=== PATIENT | female | born 1965 | race Hispanic/Latino ===

== ENCOUNTER 2021-12-23 11:06 | Inpatient (IN) | payer SELFPAY ==
[2021-12-23] MEDS ORDERED: Ketorolac Tromethamine 30 MG/ML VIAL ONE (12:08)
[2021-12-23 12:15] LABS: #Eosinphils 0.1 10x3/uL (0.0-0.5); #Monocytes 0.9 10x3/uL (0.0-1.1); %Basophils 0.3 % (0.0-2.0); %Eosinophils 1.2 % (0.0-6.0); %Monocytes 8.6 % (0.0-10.0); %Neutrophils 75.3 % (40.0-75.0); Mean Corpuscular HGB CONC 32.3 g/dL (32.0-36.0); Mean Corpuscular Hemoglobin 28.1 pg (27.0-33.0); Mean Corpuscular Volume 87.2 fl (81.6-98.3); Platelet Count 272 10x3/uL (150-450); RBC Distribution Width 14.1 % (11.5-14.5); White Blood Cell (WBC) Count 10.6 10x3/uL (3.5-10.5)
[2021-12-23 12:21] LABS: ALT (SGPT) 78 U/L (8-55); AST (SGOT) 33 U/L (5-34); Albumin 3.4 g/dL (3.5-5.0); Alkaline Phosphatase 345 U/L (40-110); Anion Gap 16 mmol/L (10-20); BUN (Urea Nitrogen) 12 mg/dL (9.8-20.1); Bilirubin, Total 0.7 mg/dL (0.2-1.2); Calc. Creatinine Clearance 0 mL/min (70-130); Calcium 8.7 mg/dL (7.8-10.44); Carbon Dioxide 22 mmol/L (22-29); Chloride 101 mmol/L (98-107); Glucose 437 mg/dL (70-105); Lipase 11 U/L (8-78); Potassium 4.8 mmol/L (3.5-5.1); Protein, Total 6.4 g/dL (6.0-8.3); Sodium 134 mmol/L (136-145)
[2021-12-23] MEDS ORDERED: cefTRIAXone\\ROCEPHIN 2 GM VIAL ONE ×2 (12:52)
[2021-12-23] MEDS ORDERED: Aspirin Chewable 81 MG TAB ONE (12:52)
[2021-12-23 13:01] LABS: SARS-CoV-2 NAA Rapid Test Not Detected (NotDetected)
[2021-12-23] MEDS ORDERED: Labetalol HCl 100 MG/20 ML VIAL ONE (13:28)
[2021-12-23] MEDS ORDERED: Azithromycin 500 MG VIAL ONE (13:28)
[2021-12-23] MEDS ORDERED: Ventolin HFA Inhaler 60 PUFF INHALER ONE (13:52)
[2021-12-23 15:08] LABS: Troponin I 0.227 ng/mL (< 0.028)
[2021-12-23] MEDS ORDERED: Senokot S 8.6-50 MG TAB PO PRN (15:09)
[2021-12-23] MEDS ORDERED: Bisacodyl 5 MG TAB PO PRN (15:09)
[2021-12-23] MEDS ORDERED: Acetaminophen 325 MG TAB PO PRN (15:09)
[2021-12-23] MEDS ORDERED: Dextrose 5% in Water 1,000 ML IV PRN (15:12)
[2021-12-23] MEDS ORDERED: Dextrose 50% Abboject 50 ML SYRINGE SLOW IVP PRN (15:12)
[2021-12-23] MEDS ORDERED: Azithromycin 500 MG in Sodium Chloride 0.9% 250 ML 250 ML IVPB SCH (15:15)
[2021-12-23] MEDS ORDERED: Furosemide 40 MG/4 ML VIAL SLOW IVP SCH (15:30)
[2021-12-23] MEDS ORDERED: Lantus 1000 UNITS/10 ML VIAL SC SCH (15:30)
[2021-12-23] MEDS: HumaLOG 300 UNITS/3 ML VIAL SC PRN ×2 (17:48→20:22)
[2021-12-23] MEDS: Carvedilol 3.125 MG TAB PO SCH (17:48)
[2021-12-23] MEDS: HYDROcodone/Acetaminophen 5/325 mg Tablet PO PRN (17:56)
[2021-12-23 20:14] VITALS: BMI 33.5
[2021-12-23] MEDS: Famotidine 20 MG TAB PO SCH (20:22)
[2021-12-23] MEDS: guaiFENesin ER 600 MG TAB PO SCH (20:22)
[2021-12-24] MEDS: Benzonatate 100 MG CAP PO PRN ×2 (02:47→15:29)
[2021-12-24] MEDS: HYDROcodone/Acetaminophen 5/325 mg Tablet PO PRN ×3 (02:55→15:29)
[2021-12-24 05:32] LABS: Anion Gap 14 mmol/L (10-20); BUN (Urea Nitrogen) 15 mg/dL (9.8-20.1); Calc. Creatinine Clearance 93 mL/min (70-130); Calcium 8.3 mg/dL (7.8-10.44); Carbon Dioxide 20 mmol/L (22-29); Chloride 104 mmol/L (98-107); Glucose 174 mg/dL (70-105); Potassium 4.4 mmol/L (3.5-5.1); Sodium 134 mmol/L (136-145)
[2021-12-24 05:34] LABS: #Eosinphils 0.3 10x3/uL (0.0-0.5); #Monocytes 0.7 10x3/uL (0.0-1.1); #Neutrophils 5.2 10x3/uL (1.5-8.4); %Basophils 0.4 % (0.0-2.0); %Eosinophils 3.3 % (0.0-6.0); %Lymphocytes 18.2 % (18.0-47.0); %Neutrophils 68.6 % (40.0-75.0); Hemoglobin 8.4 g/dL (12.0-15.5); Mean Corpuscular HGB CONC 33.2 g/dL (32.0-36.0); Mean Corpuscular Hemoglobin 28.5 pg (27.0-33.0); Mean Corpuscular Volume 85.8 fl (81.6-98.3); Mean Platelet Volume 13.5 fl (7.4-10.4); Platelet Count 239 10x3/uL (150-450); RBC Distribution Width 14.3 % (11.5-14.5); Red Blood Cell (RBC) Count 2.95 10x6/uL (3.90-5.03); White Blood Cell (WBC) Count 7.3 10x3/uL (3.5-10.5)
[2021-12-24 09:13] LABS: Strep pneumo Urine Ag NEGATIVE (NEGATIVE)
[2021-12-24] MEDS: Famotidine 20 MG TAB PO SCH ×2 (09:53→21:11)
[2021-12-24] MEDS: Lisinopril 20 MG TAB PO SCH (09:53)
[2021-12-24] MEDS: guaiFENesin ER 600 MG TAB PO SCH ×2 (09:53→21:10)
[2021-12-24] MEDS: Enoxaparin Sodium 40 MG/0.4 ML SYRINGE SC SCH (09:53)
[2021-12-24] MEDS: Aspirin 81 mg Enteric Coated Tablet PO SCH (09:53)
[2021-12-24] MEDS: Furosemide 40 MG/4 ML VIAL SLOW IVP SCH (09:54)
[2021-12-24] MEDS: Lantus 1000 UNITS/10 ML VIAL SC SCH (09:54)
[2021-12-24 10:12] LABS: Cardiac Risk 5.2 (Less than 4.5)
[2021-12-24] MEDS: Carvedilol 3.125 MG TAB PO SCH (10:23)
[2021-12-24 12:30] LABS: Hemoglobin A1c 9.4 % (4.0-6.0)
[2021-12-24] MEDS: cefTRIAXone\\ROCEPHIN 1 GM in Sodium Chloride 0.9% 100 ML IVPB SCH (15:29)
[2021-12-24] MEDS: HumaLOG 300 UNITS/3 ML VIAL SC PRN ×2 (17:09→21:12)
[2021-12-24] MEDS: Azithromycin 500 MG in Sodium Chloride 0.9% 250 ML 250 ML IVPB SCH (17:10)
[2021-12-24] MEDS: Carvedilol 6.25 MG TAB PO SCH (17:43)
[2021-12-25 05:15] LABS: Anion Gap 15 mmol/L (10-20); BUN (Urea Nitrogen) 16 mg/dL (9.8-20.1); Calc. Creatinine Clearance 100 mL/min (70-130); Calcium 8.5 mg/dL (7.8-10.44); Carbon Dioxide 22 mmol/L (22-29); Chloride 104 mmol/L (98-107); Glucose 210 mg/dL (70-105); Potassium 4.2 mmol/L (3.5-5.1); Sodium 137 mmol/L (136-145)
[2021-12-25 05:25] LABS: #Eosinphils 0.3 10x3/uL (0.0-0.5); #Monocytes 0.8 10x3/uL (0.0-1.1); #Neutrophils 5.6 10x3/uL (1.5-8.4); %Basophils 0.4 % (0.0-2.0); %Eosinophils 3.6 % (0.0-6.0); %Lymphocytes 18.3 % (18.0-47.0); %Monocytes 9.5 % (0.0-10.0); %Neutrophils 67.8 % (40.0-75.0); Hemoglobin 7.9 g/dL (12.0-15.5); Mean Corpuscular HGB CONC 32.2 g/dL (32.0-36.0); Mean Corpuscular Hemoglobin 27.8 pg (27.0-33.0); Mean Corpuscular Volume 86.3 fl (81.6-98.3); Mean Platelet Volume 12.8 fl (7.4-10.4); Platelet Count 278 10x3/uL (150-450); RBC Distribution Width 14.5 % (11.5-14.5); Red Blood Cell (RBC) Count 2.84 10x6/uL (3.90-5.03); White Blood Cell (WBC) Count 8.3 10x3/uL (3.5-10.5)
[2021-12-25] MEDS: HumaLOG 300 UNITS/3 ML VIAL SC PRN ×4 (05:54→21:09)
[2021-12-25] MEDS: Enoxaparin Sodium 40 MG/0.4 ML SYRINGE SC SCH (09:03)
[2021-12-25] MEDS: Lisinopril 20 MG TAB PO SCH (09:03)
[2021-12-25] MEDS: guaiFENesin ER 600 MG TAB PO SCH ×2 (09:04→20:12)
[2021-12-25] MEDS: Aspirin 81 mg Enteric Coated Tablet PO SCH (09:04)
[2021-12-25] MEDS: Famotidine 20 MG TAB PO SCH ×2 (09:04→20:12)
[2021-12-25] MEDS: Carvedilol 6.25 MG TAB PO SCH ×2 (09:04→17:26)
[2021-12-25] MEDS: Furosemide 40 MG/4 ML VIAL SLOW IVP SCH (09:05)
[2021-12-25] MEDS: Lantus 1000 UNITS/10 ML VIAL SC SCH (09:05)
[2021-12-25] MEDS ORDERED: Furosemide 20 MG/2 ML VIAL IVP SCH (13:15)
[2021-12-25] MEDS: cefTRIAXone\\ROCEPHIN 1 GM in Sodium Chloride 0.9% 100 ML IVPB SCH (14:32)
[2021-12-25] MEDS: Azithromycin 500 MG in Sodium Chloride 0.9% 250 ML 250 ML IVPB SCH (14:34)
[2021-12-25] MEDS: HYDROcodone/Acetaminophen 5/325 mg Tablet PO PRN (20:29)
[2021-12-26 04:49] LABS: #Eosinphils 0.3 10x3/uL (0.0-0.5); #Monocytes 0.5 10x3/uL (0.0-1.1); #Neutrophils 3.5 10x3/uL (1.5-8.4); %Basophils 0.5 % (0.0-2.0); %Eosinophils 4.6 % (0.0-6.0); %Lymphocytes 24.5 % (18.0-47.0); %Monocytes 8.8 % (0.0-10.0); %Neutrophils 61.1 % (40.0-75.0); Hemoglobin 7.9 g/dL (12.0-15.5); Mean Corpuscular Volume 87.6 fl (81.6-98.3); Mean Platelet Volume 12.6 fl (7.4-10.4); Platelet Count 281 10x3/uL (150-450); RBC Distribution Width 14.6 % (11.5-14.5); Red Blood Cell (RBC) Count 2.82 10x6/uL (3.90-5.03); White Blood Cell (WBC) Count 5.7 10x3/uL (3.5-10.5)
[2021-12-26 04:57] LABS: Anion Gap 14 mmol/L (10-20); BUN (Urea Nitrogen) 17 mg/dL (9.8-20.1); Calc. Creatinine Clearance 96 mL/min (70-130); Calcium 8.4 mg/dL (7.8-10.44); Carbon Dioxide 23 mmol/L (22-29); Chloride 105 mmol/L (98-107); Glucose 161 mg/dL (70-105); Iron 31 ug/dL (50-170); Iron Binding Capacity, Total 195 mcg/dL (265-497); Potassium 3.9 mmol/L (3.5-5.1); Sodium 138 mmol/L (136-145)
[2021-12-26 05:12] LABS: Ferritin 176.66 ng/mL (10-291)
[2021-12-26] MEDS: HumaLOG 300 UNITS/3 ML VIAL SC PRN ×4 (06:29→20:38)
[2021-12-26] MEDS: Lantus 1000 UNITS/10 ML VIAL SC SCH (08:12)
[2021-12-26] MEDS: Carvedilol 6.25 MG TAB PO SCH ×2 (08:12→16:26)
[2021-12-26] MEDS: Furosemide 40 MG/4 ML VIAL SLOW IVP SCH (08:12)
[2021-12-26] MEDS: Losartan Potassium 50 MG TAB PO SCH (08:12)
[2021-12-26] MEDS: guaiFENesin ER 600 MG TAB PO SCH ×2 (08:13→20:19)
[2021-12-26] MEDS: Famotidine 20 MG TAB PO SCH ×2 (08:13→20:19)
[2021-12-26] MEDS: Benzonatate 100 MG CAP PO PRN ×3 (08:13→21:16)
[2021-12-26] MEDS ORDERED: Iron Sucrose Complex 200 MG in Sodium Chloride 0.9% 100 ML IVPB SCH (10:30)
[2021-12-26] MEDS ORDERED: Amlodipine 10 MG TAB PO SCH (12:00)
[2021-12-26] MEDS ORDERED: Iron, Sodium Ferric Gluconate 250 MG in Sodium Chloride 0.9% 250 ML 250 ML IVPB SCH (14:30)
[2021-12-26] MEDS: Azithromycin 500 MG in Sodium Chloride 0.9% 250 ML 250 ML IVPB SCH (16:05)
[2021-12-26] MEDS: cefTRIAXone\\ROCEPHIN 1 GM in Sodium Chloride 0.9% 100 ML IVPB SCH (16:05)
[2021-12-27 04:35] LABS: Anion Gap 13 mmol/L (10-20); BUN (Urea Nitrogen) 16 mg/dL (9.8-20.1); Calc. Creatinine Clearance 108 mL/min (70-130); Calcium 8.5 mg/dL (7.8-10.44); Carbon Dioxide 24 mmol/L (22-29); Chloride 108 mmol/L (98-107); Glucose 114 mg/dL (70-105); Potassium 3.7 mmol/L (3.5-5.1); Sodium 141 mmol/L (136-145)
[2021-12-27 05:05] LABS: #Eosinphils 0.3 10x3/uL (0.0-0.5); #Monocytes 0.6 10x3/uL (0.0-1.1); #Neutrophils 4.4 10x3/uL (1.5-8.4); %Basophils 0.4 % (0.0-2.0); %Eosinophils 4.1 % (0.0-6.0); %Lymphocytes 20.9 % (18.0-47.0); %Monocytes 9.2 % (0.0-10.0); %Neutrophils 64.8 % (40.0-75.0); Hemoglobin 9.5 g/dL (12.0-15.5); Mean Corpuscular HGB CONC 32.8 g/dL (32.0-36.0); Mean Corpuscular Volume 85.5 fl (81.6-98.3); Mean Platelet Volume 12.2 fl (7.4-10.4); Platelet Count 319 10x3/uL (150-450); RBC Distribution Width 14.6 % (11.5-14.5); Red Blood Cell (RBC) Count 3.39 10x6/uL (3.90-5.03); White Blood Cell (WBC) Count 6.8 10x3/uL (3.5-10.5)
[2021-12-27] MEDS ORDERED: Furosemide 40 MG/4 ML VIAL ONE (08:42)
[2021-12-27] MEDS: Losartan Potassium 50 MG TAB PO SCH (08:50)
[2021-12-27] MEDS: Carvedilol 6.25 MG TAB PO SCH (08:51)
[2021-12-27] MEDS: Furosemide 40 MG/4 ML VIAL SLOW IVP SCH (08:51)
[2021-12-27] MEDS: Famotidine 20 MG TAB PO SCH (08:52)
[2021-12-27] MEDS: guaiFENesin ER 600 MG TAB PO SCH (08:52)
[2021-12-27] MEDS: Benzonatate 100 MG CAP PO PRN (08:52)
[2021-12-27] MEDS ORDERED: Amlodipine 10 MG TAB PO SCH (09:00)
[2021-12-27] MEDS: Lantus 1000 UNITS/10 ML VIAL SC SCH (09:14)
[2021-12-27] MEDS ORDERED: hydrALAZINE 20 MG/ML VIAL SLOW IVP PRN (09:39)
[2021-12-27 13:06] VITALS: BP 161/67; TEMP 98
[2021-12-27] MEDS: Azithromycin 500 MG in Sodium Chloride 0.9% 250 ML 250 ML IVPB SCH (15:50)
[2021-12-27] MEDS: cefTRIAXone\\ROCEPHIN 1 GM in Sodium Chloride 0.9% 100 ML IVPB SCH (15:50)
[2021-12-29 12:40] LABS: L.pneumophilia Abs <0.91 OD ratio (0.00-0.90)
[2022-01-01 23:36] LABS: Mycoplasma pneumoniae IgG AB 146 U/mL (0-99); Mycoplasma pneumoniae IgM AB Less than 770 U/mL (0-769)
== END 2021-12-27 15:40 | disposition home or self-care (01) | DRG 193 ==
LOC: CSHERS 11:06 → CSHTELE 14:46
PROVIDERS: ADMIT Family Medicine; ATTEND Internal Medicine
PROC: 30233N1 Transfusion of Nonautologous Red Blood Cells into Peripheral Vein, Percutaneous Approach (ICD-10-PCS; principal; 2021-12-25)
DX: J18.9 Pneumonia, unspecified organism (principal); J96.01 Acute respiratory failure with hypoxia; I24.8 Other forms of acute ischemic heart disease; K92.2 Gastrointestinal hemorrhage, unspecified; I10 Essential (primary) hypertension; Z20.822 Contact with and (suspected) exposure to COVID-19; D50.9 Iron deficiency anemia, unspecified; F41.9 Anxiety disorder, unspecified; E11.319 Type 2 diabetes mellitus with unspecified diabetic retinopathy without macular edema; E11.65 Type 2 diabetes mellitus with hyperglycemia; K21.9 Gastro-esophageal reflux disease without esophagitis; F32.A Depression, unspecified; E78.5 Hyperlipidemia, unspecified; Z79.82 Long term (current) use of aspirin; Z79.84 Long term (current) use of oral hypoglycemic drugs; Z79.899 Other long term (current) drug therapy
CPT/HCPCS: 36415; 36416; 36430; 71045; 80048; 80053; 80061; 82274; 82553; 82607; 82728; 82746; 83036; 83540; 83550; 83605; 83615; 83690; 83880; 84145; 84484; 85025; 85046; 85652; 86140; 86713; 86850; 86870; 86900; 86901; 86905; 86922; 87040; 87449; 87633; 87804; 93005; 93010; 93306; 94640; 94760; 96365; 96367; 96375; J0456; J0696; J1650; J1815; J1885; J1940; J2916; J3490; J7050; J7620; P9016; U0002